=== PATIENT | female | born 1990 | race African-American/Black ===

== ENCOUNTER 2019-04-19 20:26 | Emergency (ER) | payer MEDICAID ==
[~2019-04-19] VITALS: Ht 162.6 cm; Wt 59.0 kg
[2019-04-19 22:13] LABS: Basophils # (auto) 0 uL; Basophils % (auto) 0.5 % (0.0-2.0); Eosinophils # (auto) 0.1 uL; Eosinophils % (auto) 1.3 % (0.0-7.0); Lymphocytes # (auto) 1.9 uL; Lymphocytes % (auto) 20.4 % (10.0-50.0); Monocytes # (auto) 0.7 uL; Platelet Count (auto) 213 10^3/uL (140-450)
[2019-04-19 22:17] LABS: Hematocrit 31.2 % (36.0-46.0); Hemoglobin 10.3 g/dL (12.2-16.2); Mean Corpuscular Hemoglobin 23.2 pg (28.0-32.0); Mean Corpuscular Volume 70.2 fL (80.0-100.0); Monocytes % (auto) 7.4 % (0.0-12.0); Neutrophils # (auto) 6.6 uL; Neutrophils % (auto) 70.4 % (37.0-80.0); Nucleated Red Blood Cells % 0.1 %; Red Blood Cells 4.45 10^6/uL (4.0-5.20); Red Cell Distribution Width 15.4 % (11.8-14.3); White Blood Cell 9.4 10^3/uL (4.4-10.8)
[2019-04-19 22:30] LABS: Calcium 8.8 mg/dL (8.5-10.1); Potassium 4.3 mmol/L (3.5-5.1)
[2019-04-19 22:31] LABS: INR < 0.93 (0.9-1.15)
[2019-04-19 22:32] LABS: BUN/Creatinine Ratio 9.5
[2019-04-19 22:34] LABS: Bilirubin, Total 0.2 mg/dL (0.2-1.0); Total Protein 7.1 g/dL (6.4-8.2)
[2019-04-19 22:37] LABS: Urine Bacteria NONE SEEN /hpf (None Seen); Urine Blood Negative /uL (Negative); Urine Specific Gravity 1.013 (1.001-1.035); Urine WBC 2 /hpf (0 - 5)
[2019-04-20 08:09] VITALS: BP 104/60
== END 2019-04-20 09:33 | disposition home or self-care (01) ==
LOC: ER 20:26
DX: O20.0 Threatened abortion (principal); Z3A.18 18 weeks gestation of pregnancy
CPT/HCPCS: 36415; 76805; 80053; 81001; 84702; 85025; 85610; 85730; 86850; 86900; 86901

== ENCOUNTER 2019-04-29 06:04 | Observation (INO) | payer MEDICAID ==
[2019-04-29] MEDS ORDERED: FERR27TA2 PO (06:39)
[2019-04-29] MEDS ORDERED: PREN-96 PO (06:39)
[2019-04-29] MEDS ORDERED: FOLI1TAB6 PO (06:39)
== END 2019-04-29 07:00 | disposition home or self-care (01) | DRG 833 ==
LOC: LDRP 06:04
PROVIDERS: ADMIT Obstetrics & Gynecology; ATTEND Obstetrics & Gynecology
DX: O26.852 Spotting complicating pregnancy, second trimester (principal); O26.892 Other specified pregnancy related conditions, second trimester; R51 Headache; Z3A.20 20 weeks gestation of pregnancy
CPT/HCPCS: 59025; 81002; G0378

== ENCOUNTER 2019-05-28 11:17 | Emergency (ER) | payer MEDICAID ==
[~2019-05-28] VITALS: Ht 162.6 cm; Wt 62.6 kg
[~2019-05-28 11:17] MED LIST: FERR27TA2 PO; FOLI1TAB6 PO; PREN-96 PO
[2019-05-28 11:24] VITALS: BP 111/65
== END 2019-05-28 13:15 | disposition home or self-care (01) ==
LOC: ER 11:20
DX: O26.892 Other specified pregnancy related conditions, second trimester (principal); L23.9 Allergic contact dermatitis, unspecified cause; Z3A.24 24 weeks gestation of pregnancy

== ENCOUNTER 2019-06-04 09:19 | Emergency (ER) | payer MEDICAID ==
[~2019-06-04] VITALS: Ht 162.6 cm; Wt 63.5 kg
[2019-06-04 09:25] VITALS: BP 94/56
[2019-06-04 10:16] LABS: Urine Bacteria FEW /hpf (None Seen); Urine Blood Negative /uL (Negative); Urine Specific Gravity 1.019 (1.001-1.035); Urine WBC 48 /hpf (0 - 5)
== END 2019-06-04 10:34 | disposition home or self-care (01) ==
LOC: ER 09:21
DX: O23.592 Infection of other part of genital tract in pregnancy, second trimester (principal); O23.42 Unspecified infection of urinary tract in pregnancy, second trimester; B96.89 Other specified bacterial agents as the cause of diseases classified elsewhere; Z3A.24 24 weeks gestation of pregnancy
CPT/HCPCS: 81001; 87210

== ENCOUNTER 2021-05-12 04:48 | Emergency (ER) | payer MEDICAID ==
[~2021-05-12] VITALS: Ht 162.6 cm; Wt 57.6 kg
[2021-05-12] MEDS: HYDROcodone-ACET 5/325MG TAB PO ONE ×2 (05:15→05:44)
[2021-05-12 05:45] LABS: Basophils # (auto) 0 10 ^3/uL (0-0.2); Basophils % (auto) 0.2 % (0.0-2.0); Eosinophils # (auto) 0 10 ^3/uL (0-0.8); Hemoglobin 11.7 g/dL (12.2-16.2); Lymphocytes # (auto) 0.9 10 ^3/uL (0.4-5.4); Lymphocytes % (auto) 6.7 % (10.0-50.0); Mean Corpuscular Hemoglobin 23.4 pg (28.0-32.0); Mean Corpuscular Hgb Conc. 33.4 g/dL (32.0-36.0); Mean Corpuscular Volume 70.1 fL (80.0-100.0); Monocytes # (auto) 0.5 10 ^3/uL (0-1.3); Monocytes % (auto) 3.6 % (0.0-12.0); Neutrophils # (auto) 12.5 10 ^3/uL (1.6-8.6); Neutrophils % (auto) 89.5 % (37.0-80.0); Red Blood Cells 4.99 10^6/uL (4.0-5.20); Red Cell Distribution Width 15.9 % (11.8-14.3)
[2021-05-12 06:05] LABS: Albumin 3.5 g/dL (3.4-5.0); Calcium 8.8 mg/dL (8.5-10.1); Potassium 3.7 mmol/L (3.5-5.1)
[2021-05-12 06:09] LABS: BUN/Creatinine Ratio 10.3; Bilirubin, Total 0.5 mg/dL (0.2-1.0); Total Protein 7.5 g/dL (6.4-8.2)
[2021-05-12] MEDS ORDERED: SODIUM CHLORIDE 0.9% 500 ML IVB ONE (07:45)
[2021-05-12] MEDS ORDERED: SODIUM CHLORIDE 0.9% 1,000 ML IV ONE (07:45)
[2021-05-12] MEDS ORDERED: OXYTOCIN 20 UNT in SODIUM CHLORIDE 0.9% 1,000 ML IV ONE (09:30)
[2021-05-12] MEDS ORDERED: MIDAZOLAM HCL 2MG/2ML 2ml VIAL (1mg/ml) ONE (10:00)
[2021-05-12] MEDS ORDERED: fentaNYL CITRATE 100 MCG/2 ML VL ONE (10:00)
[2021-05-12] MEDS ORDERED: ceFAZolin 1GM/50ML 50 ML IV ONE (10:08)
[2021-05-12] MEDS ORDERED: SUCCINYLCHOLINE CHLORIDE 20 MG/ML 10ML VIAL IV ONE (10:38)
[2021-05-12] MEDS ORDERED: ROCURONIUM 10MG/ML 10ML VIAL IV ONE (10:42)
[2021-05-12 10:57] LABS: INR 1.01 (0.9-1.15); Partial Thromboplastin Time 23.6 sec (23.0-31.2)
[2021-05-12] MEDS ORDERED: PROPOFOL 10 MG/ML 20 ML IV ONE (10:59)
[2021-05-12] MEDS ORDERED: ONDANSETRON HCL 4 MG/2 ML VIAL ONE (10:59)
[2021-05-12] MEDS ORDERED: GLYCOPYRROLATE 0.2 MG/ML 1ML VIAL ONE (11:07)
[2021-05-12] MEDS ORDERED: NEOSTIGMINE 1 MG/ML INJ (10mg/10ML VIAL) ONE (11:07)
[2021-05-12] MEDS ORDERED: RHO (D) IMMUNE GLOBULIN 300 MCG INJ IM PRN (11:15)
[2021-05-12] MEDS ORDERED: HYDROmorphone HCL 2 MG/ML VL IV PRN ×2 (11:30)
[2021-05-12] MEDS ORDERED: METOCLOPRAMIDE HCL 5MG/ml INJ 2ml VIAL IV PRN (11:30)
[2021-05-12 12:15] VITALS: BP 128/73
== END 2021-05-12 10:22 | disposition admitted as inpatient to this hospital (09) ==
LOC: ER 04:48
DX: O03.4 Incomplete spontaneous abortion without complication (principal); Z79.899 Other long term (current) drug therapy; Z3A.16 16 weeks gestation of pregnancy; Z20.822 Contact with and (suspected) exposure to COVID-19
CPT/HCPCS: 36415; 59812; 76801; 80053; 82962; 84702; 85025; 85610; 85730; 86850; 86900; 86901; 86920; 87426; 88305; 96361; 96365; 96368; 99285; J0330; J0690; J2250; J2405; J2590; J2704; J3010; J7030; 85049